=== PATIENT | female | born 1970 | race Hispanic/Latino ===

== ENCOUNTER 2024-07-10 12:49 | Emergency (ER) | payer BC ==
--- OUTSIDE RECORDS SUMMARY | 2024-07-10 12:54 | XMS REPORT | Continuity of Care Document ---
Author Name Unknown Address [address] [place] [id number] [facility] thconnect Address [address] [place] [address] Care Team Providers Care Avionics Installer Name Role Phone Carlos Rock Attending Clinician Unavailable [email or web address]_Kadiyala_S Attending Clinician Unavaila ble [email or web address]_Kadiyala_S Admitting Clinician Unavaila ble Payers Payer Name Policy Type Policy Number Effective Date Expirati on Date Source [facility] 6 [id number] 2023 00:00:00 2090 00:00:00 [facility] [place] [id number] 2010 00:00:00 Problems Condition Name Condition Details Condition Category Status Onset Date Resolution Date Last Treatment Date Treating Clinician Comments Source [id number] Primary osteoarthr itis of left knee Problem [facility] [id number] Lymphocyto sis Problem [facility] Osteoarthr itis Polyosteoa rthritis Problem [facility] Leukocytos is Elevated white blood cell count Problem [facility] [id number] Tear of left rotator cuff, unspecifie d tear extent, unspecifie d whether traumatic Problem [facility] [id number] Rheumatoid arthritis involving multiple sites, unspecifie d whether rheumatoid factor present Problem [facility] [id number] Postmenopa usal symptoms Problem [facility] [id number] GERD without esophagiti s Problem [facility] NAFLD - Nonalcohol ic fatty liver disease Non-alcoho lic fatty liver disease Problem [facility] Obesity Obesity (BMI 30-39.9) Problem [facility] FH: Diabetes mellitus Family history of diabetes mellitus Problem [facility] [id number] Muscle spasm Problem [facility] [id number] HTN (hypertens ion), benign Problem [facility] [id number] Adult BMI 30.0-30.9 kg/sq m Problem [facility] [id number] Panic disorder [episodic paroxysmal anxiety] Problem [facility] [id number] Fibromyalg ia Problem [facility] [id number] Generalize d anxiety disorder Problem [facility] Vitamin D deficiency Vitamin D deficiency Problem [facility] [id number] Hyperlipem ia, mixed Problem [facility] Essential hypertensi on Benign essential HTN Problem [facility] [id number] Herniated lumbar interverte bral disc Problem [facility] [id number] Neuropathy , cervical Problem [facility] [id number] Ulnar neuropathy of right upper extremity Problem [facility] Allergies, Adverse Reactions, Alerts Allergy Name Allergy Type Status Severity Reaction(s) Onset Date Inactive Date Treating Clinician Comments Source morphine morphine Active Unknown Commo n [facility] codeine codeine Active Unknown [facility] Social History Social Habit Start Date Stop Date Quantity Comments Source History of Tobacco Use [facility] Sex Assigned At [facility] Smoking Status Start Date Stop Date Source Never Smoker [facility] Medications Ordered Medication Name Filled Medication Name Start Date Stop Date Current Medication? Ordering Clinician Indication Dosage Frequency Signature (SIG) Comments Components Source Lyrica 50 MG Lyrica 50 MG 2023-05 00:00: 00 No 1{capsu le} BID Lyrica 50 MG Xanax 0.5 MG Xanax 0.5 MG 2023-05 00:00: 00 No 1{table t} Xanax 0.5 MG BUPivacaine HCl BUPivacaine HCl 2023-05 00:00: 00 No 4mL [facility] Bupivicaine [place] Bupivicaine [place] 2020-05 00:00: 00 No 2.5mg [facility] Kenalog (Triamcinol one) Kenalog (Triamcinol one) 10-20 00:00: 00 No 40mg [facility] LIDOCAINE HCL 10MG/ML LIDOCAINE HCL 10MG/ML 10-20 00:00: 00 No 10mg [facility] Losartan Potassium 50 MG Losartan Potassium 50 MG No 1{table t} QD Losartan Potassium 50 MG Leflunomide 20 MG Leflunomide 20 MG No 1{table t} QD Leflunomid e 20 MG Venlafaxine HCl ER 150 MG Venlafaxine HCl ER 150 MG No 1{capsu le_with _food} QD Venlafaxin e HCl ER 150 MG Immunizations Ordered Immunization Name Filled Immunization Name Date Status Comments Source Flucelvax - single dose syringe Flucelvax - single dose syringe 2022-03-11 16:14:00 Completed [facility] Flucelvax - single dose syringe Flucelvax - single dose syringe 2022-03-11 16:14:00 [facility] Moderna COVID-19 Vaccine (Low Dose Booster) Moderna COVID-19 Vaccine (Low Dose Booster) 2021-04-23 14:39:00 Completed [facility] Moderna COVID-19 Vaccine (Low Dose Booster) Moderna COVID-19 Vaccine (Low Dose Booster) 2021-04-23 14:39:00 Completed [facility] Moderna COVID-19 Vaccine (Low Dose Booster) Moderna COVID-19 Vaccine (Low Dose Booster) 2021-04-23 14:39:00 Completed [facility] Moderna COVID-19 Vaccine (Low Dose Booster) Moderna COVID-19 Vaccine (Low Dose Booster) 2021-04-23 14:39:00 Completed [facility] Moderna COVID-19 Vaccine (Low Dose Booster) Moderna COVID-19 Vaccine (Low Dose Booster) 2021-04-23 14:39:00 Completed [facility] Moderna COVID-19 Vaccine (Low Dose Booster) Moderna COVID-19 Vaccine (Low Dose Booster) 2021-04-23 14:39:00 Completed [facility] Bupivicaine [place] Bupivicaine [place] 2021-03-13 09:39:00 Completed [facility] Kenalog (Triamcinolone) Kenalog (Triamcinolone) 2021-03-13 09:38:00 Completed [facility] COVID-19 Vaccine (Nino) COVID-19 Vaccine (Nino) 2020-08-13 10:43:00 Completed [facility] COVID-19 Vaccine (Nino) COVID-19 Vaccine (Nino) 2020-08-13 10:43:00 Completed [facility] COVID-19 Vaccine (Nino) COVID-19 Vaccine (Nino) 2020-08-13 10:43:00 Completed [facility] COVID-19 Vaccine (Nino) COVID-19 Vaccine (Nino) 2020-08-13 10:43:00 Completed [facility] COVID-19 Vaccine (Nino) COVID-19 Vaccine (Nino) 2020-08-13 10:43:00 Completed [facility] COVID-19 Vaccine (Nino) COVID-19 Vaccine (Nino) 2020-08-13 10:43:00 Completed [facility] Afluria single dose Afluria single dose 15:06:00 Completed [facility] Afluria single dose Afluria single dose 15:06:00 Completed [facility] Afluria single dose Afluria single dose 15:06:00 Completed [facility] Afluria single dose Afluria single dose 15:06:00 Completed [facility] Afluria single dose Afluria single dose 15:06:00 Completed [facility] Afluria single dose Afluria single dose 15:06:00 Completed [facility] Afluria single dose Afluria single dose 00:00:00 Completed [facility] Kenalog (Triamcinolone) Kenalog (Triamcinolone) 2018-10-20 09:10:00 Completed [facility] LIDOCAINE HCL 10MG/ML LIDOCAINE HCL 10MG/ML 2018-10-20 09:09:00 Completed [facility] Adacel (Tdap) Adacel (Tdap) 2018-07-22 09:19:00 Completed [facility] Adacel (Tdap) Adacel (Tdap) 2018-07-22 09:19:00 Completed [facility] Adacel (Tdap) Adacel (Tdap) 2018-07-22 09:19:00 Completed [facility] Adacel (Tdap) Adacel (Tdap) 2018-07-22 09:19:00 Completed [facility] Adacel (Tdap) Adacel (Tdap) 2018-07-22 09:19:00 Completed [facility] Adacel (Tdap) Adacel (Tdap) 2018-07-22 09:19:00 Completed [facility] Afluria Afluria 2018-07-22 09:18:00 Completed [facility] Afluria Afluria 2018-07-22 09:18:00 Completed [facility] Afluria Afluria 2018-07-22 09:18:00 Completed [facility] Afluria Afluria 2018-07-22 09:18:00 Completed [facility] Afluria Afluria 2018-07-22 09:18:00 Completed [facility] Afluria Afluria 2018-07-22 09:18:00 Completed [facility] TDAP > 7 Years-Adacel TDAP > 7 Years-Adacel 2018-07-22 00:00:00 Completed [facility] Afluria Afluria 2018-07-22 00:00:00 Completed [facility] Moderna COVID-19 Vaccine (Low Dose Booster) Moderna COVID-19 Vaccine (Low Dose Booster) Unknown Completed [facility] COVID-19 Vaccine (Nino) COVID-19 Vaccine (Nino) Unknown Completed [facility] Afluria single dose Afluria single dose Unknown Completed [facility] Afluria Afluria Unknown Completed [facility] Flucelvax - single dose syringe Flucelvax - single dose syringe Unknown Completed [facility] Adacel (Tdap) Adacel (Tdap) Unknown [facility]ine (Low Dose Booster) Moderna COVID-19 Vaccine (Low Dose Booster) Unknown Completed [facility] COVID-19 Vaccine (Nino) COVID-19 Vaccine (Nino) Unknown Completed [facility] Afluria single dose Afluria single dose Unknown Completed [facility] Afluria Afluria Unknown Completed [facility] Flucelvax - single dose syringe Flucelvax - single dose syringe Unknown Completed [facility] Adacel (Tdap) Adacel (Tdap) Unknown Completed Co on [facility] Moderna COVID-19 Vaccine (Low Dose Booster) Moderna COVID-19 Vaccine (Low Dose Booster) Unknown Completed [facility] COVID-19 Vaccine (Nino) COVID-19 Vaccine (Nino) Unknown Completed [facility] Afluria single dose Afluria single dose Unknown Completed [facility] Afluria Afluria Unknown Completed [facility] Flucelvax - single dose syringe Flucelvax - single dose syringe Unknown Completed [facility] Adacel (Tdap) Adacel (Tdap) [facility] Dose Bo[facility] Moderna COVID-19 Vaccine (Low Dose Booster) Unknown Completed [facility] COVID-19 Vaccine (Nino) COVID-19 Vaccine (Nino) Unknown Completed [facility] Afluria single dose Afluria single dose Unknown Completed [facility] Afluria Afluria Unknown Completed [facility] Flucelvax - single dose syringe Flucelvax - single dose syringe Unknown Completed [facility] Adacel (Tdap) Adacel (Tdap) Unknown [facility] (Low Dose Booster) Moderna COVID-19 Vaccine (Low Dose Booster) Unknown Completed [facility] COVID-19 Vaccine (Nino) COVID-19 Vaccine (Nino) Unknown Completed [facility] Afluria (IIV4) - 3 years and older - SDS - 0.5mL Afluria (IIV4) - 3 years and older - SDS - 0.5mL Unknown Completed [facility] Afluria Afluria Unknown Completed [facility] Flucelvax (ccIIV4) - SDS - 0.5mL Flucelvax (ccIIV4) - SDS - 0.5mL Unknown Completed [facility] Adacel (Tdap) Adacel (Tdap) Unknown Completed [facility] Moderna COVID-19 Vaccine (Low Dose Booster) Moderna COVID-19 Vaccine (Low Dose Booster) Unknown Completed [facility] COVID-19 Vaccine (Nino) COVID-19 Vaccine (Nino) Unknown Completed [facility] Afluria (IIV4) - 3 years and older - SDS - 0.5mL Afluria (IIV4) - 3 years and older - SDS - 0.5mL Unknown Completed [facility] Afluria Afluria Unknown Completed [facility] Flucelvax (ccIIV4) - SDS - 0.5mL Flucelvax (ccIIV4) - SDS - 0.5mL Unknown Completed [facility] Adacel (Tdap) Adacel (Tdap) Unknown Completed [facility] Moderna COVID-19 Vaccine (Low Dose Booster) Moderna COVID-19 Vaccine (Low Dose Booster) Unknown Completed [facility] COVID-19 Vaccine (Nino) COVID-19 Vaccine (Nino) Unknown Completed [facility] Afluria (IIV4) - 3 years and older - SDS - 0.5mL Afluria (IIV4) - 3 years and older - SDS - 0.5mL Unknown Completed [facility] Afluria Afluria Unknown Completed [facility] Flucelvax (ccIIV4) - SDS - 0.5mL Flucelvax (ccIIV4) - SDS - 0.5mL Unknown Completed [facility] Adacel (Tdap) Adacel (Tdap) Unknown Completed [facility] Moderna COVID-19 Vaccine (Low Dose Booster) Moderna COVID-19 Vaccine (Low Dose Booster) Unknown Completed [facility] COVID-19 Vaccine (Nino) COVID-19 Vaccine (Nino) Unknown Completed [facility] Afluria (IIV4) - 3 years and older - SDS - 0.5mL Afluria (IIV4) - 3 years and older - SDS - 0.5mL Unknown Completed [facility] Afluria Afluria Unknown Completed [facility] Flucelvax (ccIIV4) - SDS - 0.5mL Flucelvax (ccIIV4) - SDS - 0.5mL Unknown Completed [facility] Adacel (Tdap) Adacel (Tdap) Unknown Completed [facility] Moderna COVID-19 Vaccine (Low Dose Booster) Moderna COVID-19 Vaccine (Low Dose Booster) Unknown Completed [facility] COVID-19 Vaccine (Nino) COVID-19 Vaccine (Nino) Unknown Completed [facility] Afluria (IIV4) - 3 years and older - SDS - 0.5mL Afluria (IIV4) - 3 years and older - SDS - 0.5mL Unknown Completed [facility] Afluria Afluria Unknown Completed [facility] rit [facility] Flucelvax (ccIIV4) - SDS - 0.5mL Flucelvax (ccIIV4) - SDS - 0.5mL Unknown Completed [facility] Adacel (Tdap) Adacel (Tdap) Unknown Completed [facility] Moderna COVID-19 Vaccine (Low Dose Booster) Moderna COVID-19 Vaccine (Low Dose Booster) Unknown Completed [facility] COVID-19 Vaccine (Nino) COVID-19 Vaccine (Nino) Unknown Completed [facility] Afluria (IIV4) - 3 years and older - SDS - 0.5mL Afluria (IIV4) - 3 years and older - SDS - 0.5mL Unknown Completed [facility] Afluria Afluria Unknown Completed [facility] Flucelvax (ccIIV4) - SDS - 0.5mL Flucelvax (ccIIV4) - SDS - 0.5mL Unknown Completed [facility] Adacel (Tdap) Adacel (Tdap) Unknown Completed [facility] Moderna COVID-19 Vaccine (Low Dose Booster) Moderna COVID-19 Vaccine (Low Dose Booster) Unknown Completed [facility] COVID-19 Vaccine (Nino) COVID-19 Vaccine (Nino) Unknown Completed [facility] Afluria (IIV4) - 3 years and older - SDS - 0.5mL Afluria (IIV4) - 3 years and older - SDS - 0.5mL Unknown Completed [facility] Afluria Afluria Unknown Completed [facility] Flucelvax (ccIIV4) - SDS - 0.5mL Flucelvax (ccIIV4) - SDS - 0.5mL Unknown Completed [facility] Adacel (Tdap) Adacel (Tdap) Unknown Completed [facility] Moderna COVID-19 Vaccine (Low Dose Booster) Moderna COVID-19 Vaccine (Low Dose Booster) Unknown Completed [facility] COVID-19 Vaccine (Nino) COVID-19 Vaccine (Nino) Unknown Completed [facility] Afluria (IIV4) - 3 years and older - SDS - 0.5mL Afluria (IIV4) - 3 years and older - SDS - 0.5mL Unknown Completed [facility] Afluria Afluria Unknown Completed [facility] Flucelvax (ccIIV4) - SDS - 0.5mL Flucelvax (ccIIV4) - SDS - 0.5mL Unknown Completed [facility] Adacel (Tdap) Adacel (Tdap) Unknown [facility] (LOW DOSE BOOSTER) MODERNA COVID-19 VACCINE (LOW DOSE BOOSTER) Unknown Completed [facility] COVID-19 Vaccine (Nino) COVID-19 Vaccine (Nino) Unknown Completed [facility] Afluria (IIV4) - 3 years and older - SDS - 0.5mL Afluria (IIV4) - 3 years and older - SDS - 0.5mL Unknown Completed [facility] Afluria Afluria Unknown Completed [facility] Flucelvax (ccIIV4) - SDS - 0.5mL Flucelvax (ccIIV4) - SDS - 0.5mL Unknown Completed [facility] Adacel (Tdap) Adacel (Tdap) Unknown Completed [facility] Vital Signs Vital Name Observation Time Observation Value Comments S ource height 2024-05-23 08:30:00 62.5 [in_i] Comm on [facility] weight 2024-05-23 08:30:00 158 [lb_av] Comm on [facility] temperature 2024-05-23 08:30:00 98.9 [degF] Com [facility] bmi 2024-05-23 08:30:00 28.43 kg/m2 Comm on [facility] blood pressure systolic 2024-05-23 08:30:00 134 mm[Hg] [facility] blood pressure diastolic 2024-05-23 08:30:00 80 mm[Hg] Common [facility] height 2024-05-08 15:30:00 62.5 [in_i] Comm on [facility] weight 2024-05-08 15:30:00 158.4 [lb_av] Co mmon [facility] temperature 2024-05-08 15:30:00 97.2 [degF] Com [facility] bmi 2024-05-08 15:30:00 28.51 kg/m2 Comm on [facility] oximetry 2024-05-08 15:30:00 97 % Commo n [facility] respiratory rate 2024-05-08 15:30:00 18 /min Common [facility] blood pressure systolic 2024-05-08 15:30:00 138 mm[Hg] [facility] blood pressure diastolic 2024-05-08 15:30:00 77 mm[Hg] Common [facility] height 2024-04-11 13:00:00 62.5 [in_i] Comm on [facility] weight 2024-04-11 13:00:00 159.0 [lb_av] Co mmon [facility] temperature 2024-04-11 13:00:00 98.1 [degF] Com [facility] bmi 2024-04-11 13:00:00 28.61 kg/m2 Comm on [facility] blood pressure systolic 2024-04-11 13:00:00 137 mm[Hg] Common [facility] blood pressure diastolic 2024-04-11 13:00:00 78 mm[Hg] Common [facility] temperature 2024-04-03 10:20:00 97.7 [degF] Com mon [facility] bmi 2024-04-03 10:20:00 28.25 kg/m2 Comm on [facility] oximetry 2024-04-03 10:20:00 97 % Commo n [facility] respiratory rate 2024-04-03 10:20:00 18 /min Common [facility] blood pressure systolic 2024-04-03 10:20:00 132 mm[Hg] Common [facility] blood pressure diastolic 2024-04-03 10:20:00 67 mm[Hg] [facility] height 2024-04-03 10:20:00 62.5 [in_i] Comm on [facility] weight 2024-04-03 10:20:00 157 [lb_av] Comm on [facility] height 2024-01-27 15:50:00 62.5 [in_i] Comm on [facility] weight 2024-01-27 15:50:00 159.2 [lb_av] Co mmon [facility] temperature 2024-01-27 15:50:00 97.6 [degF] Com mon [facility] bmi 2024-01-27 15:50:00 28.65 kg/m2 Comm on [facility] oximetry 2024-01-27 15:50:00 97 % Commo n [facility] respiratory rate 2024-01-27 15:50:00 18 /min Common [facility] blood pressure systolic 2024-01-27 15:50:00 126 mm[Hg] Common [facility] blood pressure diastolic 2024-01-27 15:50:00 72 mm[Hg] [facility] height 2024-01-27 15:50:00 62.5 [in_i] Comm on [facility] weight 2024-01-27 15:50:00 159.2 [lb_av] Co mmon [facility] temperature 2024-01-27 15:50:00 97.6 [degF] Com mon [facility] bmi 2024-01-27 15:50:00 28.65 kg/m2 Comm on [facility] oximetry 2024-01-27 15:50:00 97 % Commo n [facility] respiratory rate 2024-01-27 15:50:00 18 /min Common [facility] blood pressure systolic 2024-01-27 15:50:00 126 mm[Hg] Common [facility] blood pressure diastolic 2024-01-27 15:50:00 72 mm[Hg] Common [facility] height 2024-01-04 15:30:00 62.5 [in_i] Comm on [facility] weight 2024-01-04 15:30:00 159.6 [lb_av] Co mmon [facility] temperature 2024-01-04 15:30:00 97.2 [degF] Com mon [facility] bmi 2024-01-04 15:30:00 28.72 kg/m2 Comm on [facility] oximetry 2024-01-04 15:30:00 98 % Commo n [facility] respiratory rate 2024-01-04 15:30:00 16 /min Common [facility] blood pressure systolic 2024-01-04 15:30:00 132 mm[Hg] Common [facility] blood pressure diastolic 2024-01-04 15:30:00 74 mm[Hg] Common [facility] height 2023-08-31 16:20:00 62.5 [in_i] Comm on [facility] weight 2023-08-31 16:20:00 160 [lb_av] Comm on [facility] bmi 2023-08-31 16:20:00 28.79 kg/m2 Comm on [facility] blood pressure systolic 2023-08-31 16:20:00 129 mm[Hg] Common [facility] blood pressure diastolic 2023-08-31 16:20:00 64 mm[Hg] Common [facility] height 2023-04-07 14:20:00 62.5 [in_i] Comm on [facility] weight 2023-04-07 14:20:00 157 [lb_av] Comm on [facility] bmi 2023-04-07 14:20:00 28.25 kg/m2 Comm on [facility] blood pressure systolic 2023-04-07 14:20:00 134 mm[Hg] Common [facility] blood pressure diastolic 2023-04-07 14:20:00 72 mm[Hg] Common [facility] height 2023-03-31 15:40:00 62.5 [in_i] Comm on [facility] weight 2023-03-31 15:40:00 157 [lb_av] Comm on [facility] bmi 2023-03-31 15:40:00 28.25 kg/m2 Comm on [facility] height 2023-01-05 14:20:00 62.5 [in_i] Comm on [facility] weight 2023-01-05 14:20:00 160.0 [lb_av] Co mmon [facility] temperature 2023-01-05 14:20:00 97.9 [degF] Com mon [facility] bmi 2023-01-05 14:20:00 28.79 kg/m2 Comm on [facility] oximetry 2023-01-05 14:20:00 98 % Commo n [facility] respiratory rate 2023-01-05 14:20:00 18 /min Common [facility] blood pressure systolic 2023-01-05 14:20:00 137 mm[Hg] Common [facility] blood pressure diastolic 2023-01-05 14:20:00 77 mm[Hg] [facility] height 2022-07-13 16:10:00 62.5 [in_i] Comm on [facility] weight 2022-07-13 16:10:00 165 [lb_av] Comm on [facility] bmi 2022-07-13 16:10:00 29.69 kg/m2 Comm on [facility] blood pressure systolic 2022-07-13 16:10:00 132 mm[Hg] Common [facility] blood pressure diastolic 2022-07-13 16:10:00 70 mm[Hg] [facility] height 2022-03-11 16:00:00 62.5 [in_i] Comm on [facility] weight 2022-03-11 16:00:00 167 [lb_av] Comm on [facility] temperature 2022-03-11 16:00:00 97.3 [degF] Com mon [facility] bmi 2022-03-11 16:00:00 30.05 kg/m2 Comm on [facility] oximetry 2022-03-11 16:00:00 99 % Commo n [facility] respiratory rate 2022-03-11 16:00:00 18 /min [facility] blood pressure systolic 2022-03-11 16:00:00 138 mm[Hg] [facility] blood pressure diastolic 2022-03-11 16:00:00 67 mm[Hg] [facility] height 2021-12-01 10:20:00 62.5 [in_i] Comm on [facility] weight 2021-12-01 10:20:00 158.0 [lb_av] Co mmon [facility] temperature 2021-12-01 10:20:00 97.7 [degF] Com [facility] bmi 2021-12-01 10:20:00 28.43 kg/m2 Comm on [facility] oximetry 2021-12-01 10:20:00 97 % Commo n [facility] respiratory rate 2021-12-01 10:20:00 18 /min Common [facility] blood pressure systolic 2021-12-01 10:20:00 123 mm[Hg[facility] blood pressure diastolic 2021-12-01 10:20:00 62 mm[Hg] [facility] height 2021-11-03 08:45:00 61 [in_i] Commo n [facility] weight 2021-11-03 08:45:00 164.2 [lb_av] Co mmon [facility] temperature 2021-11-03 08:45:00 98.0 [degF] Com [facility] bmi 2021-11-03 08:45:00 31.02 kg/m2 Comm on [facility] blood pressure systolic 2021-11-03 08:45:00 122 mm[Hg] [facility] blood pressure diastolic 2021-11-03 08:45:00 76 mm[Hg] [facility] height 2021-08-14 09:50:00 61 [in_i] Commo n [facility] weight 2021-08-14 09:50:00 159.3 [lb_av] Co mmon [facility] temperature 2021-08-14 09:50:00 97.2 [degF] Com [facility] bmi 2021-08-14 09:50:00 30.1 kg/m2 Commo n [facility] oximetry 2021-08-14 09:50:00 100 % Commo n [facility] [facility] respiratory rate 2021-08-14 09:50:00 18 /min Common [facility] blood pressure systolic 2021-08-14 09:50:00 138 mm[Hg] Common Spiri t [facility] blood pressure diastolic 2021-08-14 09:50:00 72 mm[Hg] [facility] height 2021-07-01 15:00:00 61 [in_i] Commo n [facility] weight 2021-07-01 15:00:00 163.1 [lb_av] Co mmon [facility] temperature 2021-07-01 15:00:00 97.9 [degF] Com mon [facility] bmi 2021-07-01 15:00:00 30.81 kg/m2 Comm on [facility] oximetry 2021-07-01 15:00:00 100 % Commo n [facility] respiratory rate 2021-07-01 15:00:00 18 /min Common [facility] blood pressure systolic 2021-07-01 15:00:00 135 mm[Hg] [facility] blood pressure diastolic 2021-07-01 15:00:00 67 mm[Hg] Common [facility] height 2021-05-15 09:30:00 61 [in_i] Commo n [facility] weight 2021-05-15 09:30:00 163.1 [lb_av] Co mmon [facility] temperature 2021-05-15 09:30:00 97.9 [degF] Com mon [facility] bmi 2021-05-15 09:30:00 30.81 kg/m2 Comm on [facility] oximetry 2021-05-15 09:30:00 100 % Commo n [facility] respiratory rate 2021-05-15 09:30:00 18 /min [facility] blood pressure systolic 2021-05-15 09:30:00 135 mm[Hg] [facility] blood pressure diastolic 2021-05-15 09:30:00 67 mm[Hg] [facility] height 2021-03-13 09:00:00 61 [in_i] Commo n [facility] weight 2021-03-13 09:00:00 159.7 [lb_av] Co mmon [facility] temperature 2021-03-13 09:00:00 97.1 [degF] Com mon [facility] bmi 2021-03-13 09:00:00 30.17 kg/m2 Comm on [facility] blood pressure systolic 2021-03-13 09:00:00 132 mm[Hg] [facility] blood pressure diastolic 2021-03-13 09:00:00 80 mm[Hg] Common [facility] height 2021-02-20 09:00:00 61 [in_i] Commo n [facility] weight 2021-02-20 09:00:00 160 [lb_av] Comm on [facility] temperature 2021-02-20 09:00:00 98 [degF] Comm on [facility] bmi 2021-02-20 09:00:00 30.23 kg/m2 Comm on [facility] blood pressure systolic 2021-02-20 09:00:00 135 mm[Hg] Common [facility] blood pressure diastolic 2021-02-20 09:00:00 70 mm[Hg] [facility] height 2021-01-22 15:30:00 61 [in_i] Commo n [facility] weight 2021-01-22 15:30:00 160.3 [lb_av] Co mmon [facility] temperature 2021-01-22 15:30:00 97.9 [degF] Com [facility] bmi 2021-01-22 15:30:00 30.29 kg/m2 Comm on [facility] oximetry 2021-01-22 15:30:00 97 % Commo n [facility] respiratory rate 2021-01-22 15:30:00 16 /min [facility] blood pressure systolic 2021-01-22 15:30:00 132 mm[Hg] [facility] blood pressure diastolic 2021-01-22 15:30:00 76 mm[Hg] [facility] Encounters Start Date/Time End Date/Time Encounter Type Admission Type Attending Clinicians Care Facility Care Department Encounter ID Source 2024-07-10 10:35:00 Outpatient Rock, Carlos STLMLC STL[facility] [id number] [facility] 2024-05-19 08:56:00 Outpatient Rock, Carlos STLMLC ST[facility] [id number] [facility] 2024-04-10 10:08:00 Outpatient Rock, Carlos STLMLC ST[facility] [id number] [facility] 2024-03-31 09:31:00 Outpatient Rock, Carlos STLMLC ST[facility]C [id number] [facility] 2024-03-28 10:15:00 Outpatient Rock, Carlos STLMLC STLMLC [id number] [facility] 2024-01-21 15:07:00 Outpatient Rock, Carlos STLMLC ST[facility]C [id number] [facility] 2023-04-06 10:28:00 Outpatient Rock, Carlos STLMLC ST[facility]C [id number] [facility] 2023-03-31 14:53:00 Outpatient Rock, Carlos STLMLC ST[facility] [id number] [facility] 2023-01-04 09:01:00 Outpatient Rock, Carlos STLMLC ST[facility]MLC [id number] [facility] 2022-03-09 15:59:00 Outpatient Rock, Carlos STLMLC STLMLC [id number] [facility] 2022-03-03 08:50:01 Outpatient Rock, Carlos STLMLC STLMLC [id number] [facility] 2021-11-04 14:03:00 Outpatient Rock, Carlos STLMLC STLMLC [id number] [facility] 2021-09-15 10:01:00 Outpatient Rock, Carlos STLMLC ST[facility]C [id number] [facility] 2021-06-18 14:27:52 Outpatient Rock, Carlos STLMLC STLMLC [id number] [facility] 2021-06-18 14:19:26 Outpatient Rock, Carlos STLMLC STLMLC [id number] [facility] 2021-06-18 14:03:20 Outpatient Rock, Carlos STLMLC STLMLC [id number] [facility] 2021-06-18 14:02:48 Outpatient Rock, Carlos STLMLC STLMLC [id number] [facility] 2021-06-18 13:54:39 Outpatient Rock, Carlos STLMLC ST[facility]C [id number] [facility] 2021-06-18 13:49:22 Outpatient Rock, Carlos STLMLC STLMLC [id number] [facility] 2021-06-18 13:45:07 Outpatient Rock, Carlos STLMLC STLMLC [id number] [facility] 2021-06-18 13:09:30 Outpatient Rock, Carlos STLMLC STLMLC [id number] [facility] 2021-06-18 12:43:39 Outpatient Rock, Carlos STLMLC STLMLC [id number] [facility] 2021-06-18 12:43:09 Outpatient Rock, Carlos STLMLC STL[facility]C [id number] [facility] 2021-06-18 12:42:16 Outpatient Rock, Carlos STLMLC STLMLC [id number] [facility] 2021-06-18 12:40:23 Outpatient Rock, Carlos STLMLC STLMLC [id number] [facility] 2021-06-18 12:37:41 Outpatient Rock, Carlos STLMLC STLMLC [id number] [facility] 2021-06-18 12:37:04 Outpatient Rock, Carlos STLMLC STLMLC [id number] [facility] 2021-06-18 12:30:58 Outpatient Rock, Carlos STLMLC STLMLC [id number] [facility] 2021-06-18 12:25:14 Outpatient Rock, Carlos STLMLC STLMLC [id number] [facility] 2021-06-18 11:30:43 Outpatient Rock, Carlos STLMLC STLMLC [id number] [facility] 2021-06-18 11:29:49 Outpatient Rock, Carlos STLMLC STLMLC [id number] [facility] 2021-06-18 11:29:40 Outpatient Rock, Carlos STLMLC STLMLC [id number] [facility] 2021-06-18 11:27:58 Outpatient Rock, Carlos STLMLC STLMLC [id number] [facility] 2021-06-18 11:15:04 Outpatient Rock, Carlos STLMLC STLMLC [id number] [facility] 2021-06-18 11:14:41 Outpatient Rock, Carlos STLMLC STLMLC [id number] [facility] 2024-05-23 00:00:00 2024-05-23 00:00:00 OFFICE VISIT ESTAB PT LEVEL 4 STLMLC STLMLC [id number] [facility] 2024-05-23 00:00:00 2024-05-23 00:00:00 (TEL) STLMLC STLMLC [id number] [facility] 2024-05-08 00:00:00 2024-05-08 00:00:00 OFFICE VISIT ESTAB PT LEVEL 4 STLMLC STLMLC [id number] [facility] 2024-04-28 00:00:00 2024-04-28 00:00:00 (WEB) STLMLC STLMLC [id number] [facility] 2024-04-27 00:00:00 2024-04-27 00:00:00 (WEB) STLMLC STLMLC [id number] [facility] 2024-04-11 00:00:00 2024-04-11 00:00:00 OFFICE VISIT ESTAB PT LEVEL 4 STLMLC STLMLC [id number] [facility] 2024-04-04 00:00:00 2024-04-04 00:00:00 (WEB) STLMLC STLMLC [id number] [facility] 2024-04-04 00:00:00 2024-04-04 00:00:00 (WEB) STLMLC STLMLC [id number] [facility] 2024-04-03 00:00:00 2024-04-03 00:00:00 OFFICE VISIT ESTAB PT LEVEL 3 STLMLC STLMLC [id number] [facility] 2024-03-29 00:00:00 2024-03-29 00:00:00 (TEL) STLMLC STLMLC [id number] [facility] 2024-01-27 00:00:00 2024-01-27 00:00:00 OFFICE VISIT ESTAB PT LEVEL 3 STLMLC STLMLC [id number] [facility] 2024-01-04 00:00:00 2024-01-04 00:00:00 (WELLNESS) Wellness Visit STLMLC STLMLC [id number] [facility] 2023-08-31 00:00:00 2023-08-31 00:00:00 OFFICE VISIT ESTAB PT LEVEL 4 STLMLC STLMLC [id number] [facility] 2023-05-21 00:00:00 2023-05-21 00:00:00 Outpatient GC_GCBZW_Ka diyala_S PRIV PRIV [id number] [facility] 2023-05-08 00:00:00 2023-05-08 00:00:00 (WEB) STLMLC STLMLC [id number] [facility] 2023-05-03 00:00:00 2023-05-03 00:00:00 (WEB) STLMLC STLMLC [id number] [facility] 2023-04-23 00:00:00 2023-04-23 00:00:00 Outpatient GC_GCBZW_Ka diyala_S PRIV PRIV [id number] [facility] 2023-04-15 00:00:00 2023-04-15 00:00:00 (WEB) STLMLC STLMLC [id number] [facility] 2023-04-07 00:00:00 2023-04-07 00:00:00 OFFICE VISIT ESTAB PT LEVEL 4 STLMLC STLMLC [id number] [facility] 2023-03-31 00:00:00 2023-03-31 00:00:00 OFFICE VISIT ESTAB PT LEVEL 3 STLMLC STLMLC [id number] [facility] 2023-03-31 00:00:00 2023-03-31 00:00:00 (TEL) STLMLC STLMLC [id number] [facility] 2023-03-26 00:00:00 2023-03-26 00:00:00 Outpatient GC_GCBZW_Ka diyala_S PRIV PRIV [id number] [facility] 2023-03-05 00:00:00 2023-03-05 00:00:00 Outpatient GC_GCBZW_Ka diyala_S PRIV PRIV [id number] [facility] 2023-02-24 00:00:00 2023-02-24 00:00:00 Outpatient GC_GCBZW_Ka diyala_S PRIV PRIV [id number] [facility] 2023-02-24 00:00:00 2023-02-24 00:00:00 Outpatient GC_GCBZW_Ka diyala_S PRIV PRIV [id number] [facility] 2023-01-29 00:00:00 2023-01-29 00:00:00 (TEL) STLMLC STLMLC [id number] [facility] 2023-01-13 00:00:00 2023-01-13 00:00:00 Outpatient GC_GCBZW_Ka diyala_S PRIV PRIV [id number] [facility] 2023-01-05 00:00:00 2023-01-05 00:00:00 (WELLNESS) Wellness Visit STLMLC STLMLC [id number] [facility] 2022-08-29 00:00:00 2022-08-29 00:00:00 (WEB) STLMLC STLMLC [id number] [facility] 2022-08-29 00:00:00 2022-08-29 00:00:00 (WEB) STLMLC STLMLC [id number] [facility] 2022-07-15 00:00:00 2022-07-15 00:00:00 (WEB) STLMLC STLMLC [id number] [facility] 2022-07-13 00:00:00 2022-07-13 00:00:00 OFFICE VISIT ESTAB PT LEVEL 3 STLMLC STLMLC [id number] [facility] 2022-06-17 00:00:00 2022-06-17 00:00:00 (TEL) STLMLC STLMLC [id number] [facility] 2022-03-11 00:00:00 2022-03-11 00:00:00 PREV VISIT EST AGE 40-64 STLMLC STLMLC [id number] [facility] 2021-12-03 00:00:00 2021-12-03 00:00:00 (TEL) STLMLC STLMLC [id number] [facility] 2021-12-01 00:00:00 2021-12-01 00:00:00 OFFICE VISIT ESTAB PT LEVEL 4 STLMLC STLMLC [id number] [facility] 2021-11-04 00:00:00 2021-11-04 00:00:00 (TEL) STLMLC STLMLC [id number] [facility] 2021-11-03 00:00:00 2021-11-03 00:00:00 (TEL) STLMLC STLMLC [id number] [facility] 2021-11-03 00:00:00 2021-11-03 00:00:00 OFFICE VISIT ESTAB PT LEVEL 4 STLMLC STLMLC [id number] [facility] 2021-09-18 00:00:00 2021-09-18 00:00:00 (WEB) STLMLC STLMLC [id number] [facility] 2021-08-14 00:00:00 2021-08-14 00:00:00 OFFICE VISIT ESTAB PT LEVEL 4 STLMLC STLMLC [id number] [facility] 2021-07-15 00:00:00 2021-07-15 00:00:00 OFFICE VISIT ESTAB PT LEVEL 1 STLMLC STLMLC [id number] [facility] 2021-07-14 00:00:00 2021-07-14 00:00:00 (TEL) STLMLC STLMLC [id number] [facility] 2021-07-14 00:00:00 2021-07-14 00:00:00 (TEL) STLMLC STLMLC [id number] [facility] 2021-07-01 00:00:00 2021-07-01 00:00:00 (WEB) STLMLC STLMLC [id number] [facility] 2021-07-01 00:00:00 2021-07-01 00:00:00 (TEL) STLMLC STLMLC [id number] [facility] 2021-07-01 00:00:00 2021-07-01 00:00:00 OFFICE VISIT EST PT LEVEL 3 STLMLC STLMLC [id number] [facility] 2021-05-26 00:00:00 2021-05-26 00:00:00 OFFICE VISIT ESTAB PT LEVEL 1 STLMLC STLMLC [id number] [facility] 2021-05-26 00:00:00 2021-05-26 00:00:00 (TEL) STLMLC STLMLC [id number] [facility] 2021-05-15 00:00:00 2021-05-15 00:00:00 OFFICE VISIT ESTAB PT LEVEL 4 STLMLC STLMLC [id number] [facility] 2021-04-23 00:00:00 2021-04-23 00:00:00 (COVID Inj) COVID Injection STLMLC STLMLC [id number] [facility] 2021-03-13 00:00:00 2021-03-13 00:00:00 OFFICE VISIT ESTAB PT LEVEL 4 STLMLC STLMLC [id number] [facility] 2021-02-20 00:00:00 2021-02-20 00:00:00 OFFICE VISIT EST PT LEVEL 3 STLMLC STLMLC [id number] [facility] 2021-01-22 00:00:00 2021-01-22 00:00:00 PREV VISIT EST AGE 40-64 STLMLC STLMLC [id number] [facility] 2021-01-14 00:00:00 2021-01-14 00:00:00 (TEL) STLMLC STLMLC [id number] [facility] 2020-08-13 00:00:00 2020-08-13 00:00:00 Outpatient STLMLC STLMLC [id number] [facility] 2020-08-06 00:00:00 2020-08-06 00:00:00 Outpatient STLMLC STLMLC [id number] [facility] 2020-07-08 00:00:00 2020-07-08 00:00:00 Outpatient STLMLC STLMLC [id number] [facility] 2020-07-02 00:00:00 2020-07-02 00:00:00 Outpatient STLMLC STLMLC [id number] [facility] 2020-06-18 00:00:00 2020-06-18 00:00:00 Outpatient STLMLC STLMLC [id number] [facility] 2020-04-11 00:00:00 2020-04-11 00:00:00 Outpatient STLMLC STLMLC [id number] [facility] 2020-04-10 00:00:00 2020-04-10 00:00:00 Outpatient STLMLC STLMLC [id number] [facility] 2019-12-29 10:41:00 2019-12-29 10:41:00 [facility] [id number] [facility] 2019-12-27 09:18:00 2019-12-27 09:18:00 [facility] [id number] [facility] 2019-12-06 22:49:00 2019-12-06 22:49:00 [facility] [id number] [facility] 2019-12-05 15:00:00 2019-12-05 15:00:00 [facility] [id number] [facility] 2019-12-04 08:45:00 2019-12-04 08:45:[address] [facility] [id number] [facility] 2019-11-09 15:45:00 2019-11-09 15:45:[address] [facility] [id number] [facility] 2019-08-25 10:15:00 2019-08-25 10:15:[address] [facility] [id number] [facility] 2019-04-17 14:45:00 2019-04-17 14:45:[address] [facility] [id number] [facility] 2019-03-23 16:31:00 2019-03-23 16:31:[address] [facility] [id number] [facility] 2019-01-18 09:15:00 2019-01-18 09:15:00 [facility] [id number] [facility] 2018-09-28 11:00:00 2018-09-28 11:00:[address] [facility] [id number] [facility] 2018-09-19 09:38:00 2018-09-19 09:38:[address] [facility] [id number] [facility] 2018-08-08 10:31:00 2018-08-08 10:31:[address] [facility] [facility] [id number] [facility] 2018-07-22 09:15:00 2018-07-22 09:15:[address] [facility] [id number] [facility] 2018-06-07 16:00:00 2018-06-07 16:00:[address] [facility] [id number] [facility] 2018-05-13 09:51:00 2018-05-13 09:51:[address] [facility] [id number] [facility] 2018-05-05 08:00:00 2018-05-05 08:00:00 [facility] [id number] [facility] 2017-12-08 09:30:00 2017-12-08 09:30:00 [facility] [id number] [facility] 2017-11-23 10:40:00 2017-11-23 10:40:[address] [facility] [facility] [id number] [facility] 2017-09-24 08:45:00 2017-09-24 08:45:00 [facility] [id number] [facility] 2017-08-17 10:49:00 2017-08-17 10:49:[address] [facility] [id number] [facility] 2017-08-17 10:45:00 2017-08-17 10:45:00 [facility] [place] [facility] [id number] [facility] Results Test Description Test Time Test Comments Results Result Co mments Source COMPREHENSIVE METABOLIC [id number] 00:00:00* Test Item Value Reference Range Interpretation Comme nts NUCLEATED RBCS (test code = 52556-9) 0.0 /100 WBC'S See_Comment [Automated message] The system which generated this result transmitted reference range: 0.0 /100 WBC'S. The reference range was not used to interpret this result as normal/abnormal. ABSOLUTE EOSINOPHILS (test code = 35149-4) 0.19 K/UL See_Comment [Automated message] The system which generated this result transmitted reference range: 0.00-0.50 K/UL. The reference range was not used to interpret this result as normal/abnormal. ABSOLUTE LYMPHOCYTES (test code = 71324-2) 2.59 K/UL See_Comment [Automated message] The system which generated this result transmitted reference range: 1.00-4.00 K/UL. The reference range was not used to interpret this result as normal/abnormal. ABSOLUTE MONOCYTES (test code = 28168-1) 0.42 K/UL See_Comment [Automated message] The system which generated this result transmitted reference range: 0.20-1.00 K/UL. The reference range was not used to interpret this result as normal/abnormal. ABSOLUTE NEUTROPHILS (test code = 33342-6) 2.97 K/UL See_Comment [Automated message] The system which generated this result transmitted reference range: 1.50-7.50 K/UL. The reference range was not used to interpret this result as normal/abnormal. BASOPHILS (test code = 30713-4) 1.4 % EOSINOPHILS (test code = 91165-6) 3.0 % HEMATOCRIT (test code = 20103-7) 36.5 % See_Comment [Automated messa ge] The system which generated this result transmitted reference range: 34.0-45.0 %. The reference range was not used to interpret this result as normal/abnormal. HEMOGLOBIN (test code = 718-7) 12.2 G/DL See_Comment [Automated messa ge] The system which generated this result transmitted reference range: 11.5-15.5 G/DL. The reference range was not used to interpret this result as normal/abnormal. LYMPHOCYTES (test code = 64948-1) 41.3 % MCH (test code = 98996-3) 29.0 PG See_Comment [Automated messa ge] The system which generated this result transmitted reference range: 25.0-33.0 PG. The reference range was not used to interpret this result as normal/abnormal. MCHC (test code = 47399-7) 33.4 G/DL See_Comment [Automated messa ge] The system which generated this result transmitted reference range: 31.0-36.0 G/DL. The reference range was not used to interpret this result as normal/abnormal. MCV (test code = 04676-9) 86.9 fL See_Comment [Automated messa ge] The system which generated this result transmitted reference range: 80.0-99.0 fL. The reference range was not used to interpret this result as normal/abnormal. MONOCYTES (test code = 71147-0) 6.7 % NEUTROPHILS (test code = 33337-2) 47.4 % PLATELET COUNT (test code = 52177-0) 254 K/UL See_Comment [Automated messa ge] The system which generated this result transmitted reference range: 130-400 K/UL. The reference range was not used to interpret this result as normal/abnormal. RBC (test code = 90029-9) 4.20 M/UL See_Comment [Automated messa ge] The system which generated this result transmitted reference range: 3.80-5.40 M/UL. The reference range was not used to interpret this result as normal/abnormal. RDW (test code = 27584-8) 13.1 % See_Comment [Automated [employer]] The system which generated this result transmitted reference range: 11.5-15.0 %. The reference range was not used to interpret this result as normal/abnormal. WBC (test code = 97680-1) 6.3 K/UL See_Comment [Automated [employer]] The system which generated this result transmitted reference range: 3.5-11.0 K/UL. The reference range was not used to interpret this result as normal/abnormal. HEMOGLOBIN A1c (test code = 4548-4) 5.5 % See_Comment [Automated [employer]] The system which generated this result transmitted reference range: 4.2-5.6 %. The reference range was not used to interpret this result as normal/abnormal. VITAMIN D, 25 OH (test code = 1989-3) 35 NG/ML SEE BELOW NG/ML CALC LDL CHOL (test code = 61821-7) 159 MG/DL See_Comment H [Automated messa ge] The system which generated this result transmitted reference range: <100 MG/DL. The reference range was not used to interpret this result as normal/abnormal. CHOLESTEROL (test code = 2093-3) 234 MG/DL See_Comment H [Automated messa ge] The system which generated this result transmitted reference range: <200 MG/DL. The reference range was not used to interpret this result as normal/abnormal. HDL CHOLESTEROL (test code = 2085-9) 50 MG/DL See_Comment [Automated [employer]] The system which generated this result transmitted reference range: >39 MG/DL. The reference range was not used to interpret this result as normal/abnormal. RISK RATIO LDL/HDL (test code = 24542-2) 3.18 RATIO See_Comment [Automated message] The system which generated this result transmitted reference range: <3.22 RATIO. The reference range was not used to interpret this result as normal/abnormal. TRIGLYCERIDES (test code = 2571-8) 128 MG/DL See_Comment [Automated messa ge] The system which generated this result transmitted reference range: <150 MG/DL. The reference range was not used to interpret this result as normal/abnormal. ALBUMIN (test code = 1751-7) 4.3 G/DL See_Comment [Automated messa ge] The system which generated this result transmitted reference range: 3.5-5.2 G/DL. The reference range was not used to interpret this result as normal/abnormal. ALKALINE PHOSPHATASE (test code = 6768-6) 97 U/L See_Comment [Automated message] The system which generated this result transmitted reference range: 40-133 U/L. The reference range was not used to interpret this result as normal/abnormal. BILIRUBIN, TOTAL (test code = 1975-2) 0.4 MG/DL See_Comment [Automated messa ge] The system which generated this result transmitted reference range: <=1.2 MG/DL. The reference range was not used to interpret this result as normal/abnormal. BUN (test code = 3094-0) 12 MG/DL See_Comment [Automated messa ge] The system which generated this result transmitted reference range: 6-20 MG/DL. The reference range was not used to interpret this result as normal/abnormal. CALCIUM (test code = 95270-3) 9.7 MG/DL See_Comment [Automated messa ge] The system which generated this result transmitted reference range: 8.5-10.5 MG/DL. The reference range was not used to interpret this result as normal/abnormal. CALC A/G RATIO (test code = 1759-0) 1.8 RATIO See_Comment [Automated messa ge] The system which generated this result transmitted reference range: 1.0-2.6 RATIO. The reference range was not used to interpret this result as normal/abnormal. CALC BUN/CREAT (test code = 3097-3) 17 RATIO See_Comment [Automated messa ge] The system which generated this result transmitted reference range: 6-28 RATIO. The reference range was not used to interpret this result as normal/abnormal. CALC GLOBULIN (test code = 22459-8) 2.4 G/DL See_Comment [Automated messa ge] The system which generated this result transmitted reference range: 1.9-3.7 G/DL. The reference range was not used to interpret this result as normal/abnormal. CARBON DIOXIDE (test code = 1963-8) 25 MEQ/L See_Comment [Automated messa ge] The system which generated this result transmitted reference range: 19-31 MEQ/L. The reference range was not used to interpret this result as normal/abnormal. CHLORIDE (test code = 2075-0) 105 MEQ/L See_Comment [Automated messa ge] The system which generated this result transmitted reference range: 95-107 MEQ/L. The reference range was not used to interpret this result as normal/abnormal. CREATININE (test code = 2160-0) 0.70 MG/DL See_Comment [Automated messa ge] The system which generated this result transmitted reference range: 0.60-1.30 MG/DL. The reference range was not used to interpret this result as normal/abnormal. eGFR (2020 CKD-EPI) (test code = 38373-4) 103 ML/MIN/1.73 See_Comment [Automated message] The system which generated this result transmitted reference range: >60 ML/MIN/1.73. The reference range was not used to interpret this result as normal/abnormal. GLUCOSE (test code = 1558-6) 93 MG/DL See_Comment [Automated messa ge] The system which generated this result transmitted reference range: 70-99 MG/DL. The reference range was not used to interpret this result as normal/abnormal. POTASSIUM (test code = 2823-3) 4.3 MEQ/L See_Comment [Automated messa ge] The system which generated this result transmitted reference range: 3.5-5.4 MEQ/L. The reference range was not used to interpret this result as normal/abnormal. PROTEIN, TOTAL (test code = 2885-2) 6.7 G/DL See_Comment [Automated messa ge] The system which generated this result transmitted reference range: 6.1-8.3 G/DL. The reference range was not used to interpret this result as normal/abnormal. AST (test code = 1920-8) 15 U/L See_Comment [Automated messa ge] The system which generated this result transmitted reference range: 9-40 U/L. The reference range was not used to interpret this result as normal/abnormal. ALT (test code = 1742-6) 13 U/L See_Comment [Automated messa ge] The system which generated this result transmitted reference range: 5-40 U/L. The reference range was not used to interpret this result as normal/abnormal. SODIUM (test code = 2951-2) 143 MEQ/L See_Comment [Automated messa ge] The system which generated this result transmitted reference range: 133-146 MEQ/L. The reference range was not used to interpret this result as normal/abnormal. CBC W/AUTO [id number] 00:00:00* Test Item Value Reference Range Interpretation Comme nts NUCLEATED RBCS (test code = 79064-8) 0.0 /100 WBC'S See_Comment [Automated messa ge] The system which generated this result transmitted reference range: 0.0 /100 WBC'S. The reference range was not used to interpret this result as normal/abnormal. ABSOLUTE EOSINOPHILS (test code = 55971-6) 0.22 K/UL See_Comment [Automated messa ge] The system which generated this result transmitted reference range: 0.00-0.50 K/UL. The reference range was not used to interpret this result as normal/abnormal. ABSOLUTE LYMPHOCYTES (test code = 87763-1) 2.62 K/UL See_Comment [Automated messa ge] The system which generated this result transmitted reference range: 1.00-4.00 K/UL. The reference range was not used to interpret this result as normal/abnormal. ABSOLUTE MONOCYTES (test code = 08368-2) 0.54 K/UL See_Comment [Automated messa ge] The system which generated this result transmitted reference range: 0.20-1.00 K/UL. The reference range was not used to interpret this result as normal/abnormal. ABSOLUTE NEUTROPHILS (test code = 59348-4) 3.68 K/UL See_Comment [Automated messa ge] The system which generated this result transmitted reference range: 1.50-7.50 K/UL. The reference range was not used to interpret this result as normal/abnormal. BASOPHILS (test code = 40981-5) 1.3 % EOSINOPHILS (test code = 08307-9) 3.1 % HEMATOCRIT (test code = 74126-6) 38.3 % See_Comment [Automated messa ge] The system which generated this result transmitted reference range: 34.0-45.0 %. The reference range was not used to interpret this result as normal/abnormal. HEMOGLOBIN (test code = 718-7) 12.6 G/DL See_Comment [Automated messa ge] The system which generated this result transmitted reference range: 11.5-15.5 G/DL. The reference range was not used to interpret this result as normal/abnormal. LYMPHOCYTES (test code = 43134-5) 36.6 % MCH (test code = 44205-8) 28.4 PG See_Comment [Automated messa ge] The system which generated this result transmitted reference range: 25.0-33.0 PG. The reference range was not used to interpret this result as normal/abnormal. MCHC (test code = 16267-0) 32.9 G/DL See_Comment [Automated messa ge] The system which generated this result transmitted reference range: 31.0-36.0 G/DL. The reference range was not used to interpret this result as normal/abnormal. MCV (test code = 41369-0) 86.5 fL See_Comment [Automated messa ge] The system which generated this result transmitted reference range: 80.0-99.0 fL. The reference range was not used to interpret this result as normal/abnormal. MONOCYTES (test code = 15372-3) 7.5 % NEUTROPHILS (test code = 22673-5) 51.4 % PLATELET COUNT (test code = 12018-8) 289 K/UL See_Comment [Automated messa ge] The system which generated this result transmitted reference range: 130-400 K/UL. The reference range was not used to interpret this result as normal/abnormal. RBC (test code = 16041-4) 4.43 M/UL See_Comment [Automated messa ge] The system which generated this result transmitted reference range: 3.80-5.40 M/UL. The reference range was not used to interpret this result as normal/abnormal. RDW (test code = 62543-0) 13.1 % See_Comment [Automated messa ge] The system which generated this result transmitted reference range: 11.5-15.0 %. The reference range was not used to interpret this result as normal/abnormal. WBC (test code = 01184-8) 7.2 K/UL See_Comment [Automated messa ge] The system which generated this result transmitted reference range: 3.5-11.0 K/UL. The reference range was not used to interpret this result as normal/abnormal. CBC W/AUTO [id number] 00:00:00* Test Item Value Reference Range Interpretation Comme nts NUCLEATED RBCS (test code = 47560-2) 0.0 /100 WBC'S See_Comment [Automated messa ge] The system which generated this result transmitted reference range: 0.0 /100 WBC'S. The reference range was not used to interpret this result as normal/abnormal. ABSOLUTE EOSINOPHILS (test code = 71257-1) 0.10 K/UL See_Comment [Automated messa ge] The system which generated this result transmitted reference range: 0.00-0.50 K/UL. The reference range was not used to interpret this result as normal/abnormal. ABSOLUTE LYMPHOCYTES (test code = 92191-3) 2.32 K/UL See_Comment [Automated messa ge] The system which generated this result transmitted reference range: 1.00-4.00 K/UL. The reference range was not used to interpret this result as normal/abnormal. ABSOLUTE MONOCYTES (test code = 29241-7) 1.06 K/UL See_Comment H [Automated messa ge] The system which generated this result transmitted reference range: 0.20-1.00 K/UL. The reference range was not used to interpret this result as normal/abnormal. ABSOLUTE NEUTROPHILS (test code = 08732-0) 6.39 K/UL See_Comment [Automated messa ge] The system which generated this result transmitted reference range: 1.50-7.50 K/UL. The reference range was not used to interpret this result as normal/abnormal. BASOPHILS (test code = 07687-9) 1.2 % EOSINOPHILS (test code = 70137-0) 1.0 % HEMATOCRIT (test code = 72682-6) 37.1 % See_Comment [Automated messa ge] The system which generated this result transmitted reference range: 34.0-45.0 %. The reference range was not used to interpret this result as normal/abnormal. HEMOGLOBIN (test code = 718-7) 12.5 G/DL See_Comment [Automated messa ge] The system which generated this result transmitted reference range: 11.5-15.5 G/DL. The reference range was not used to interpret this result as normal/abnormal. LYMPHOCYTES (test code = 69446-8) 23.1 % MCH (test code = 34680-2) 30.0 PG See_Comment [Automated messa ge] The system which generated this result transmitted reference range: 25.0-33.0 PG. The reference range was not used to interpret this result as normal/abnormal. MCHC (test code = 73665-2) 33.7 G/DL See_Comment [Automated messa ge] The system which generated this result transmitted reference range: 31.0-36.0 G/DL. The reference range was not used to interpret this result as normal/abnormal. MCV (test code = 93692-2) 89.2 fL See_Comment [Automated messa ge] The system which generated this result transmitted reference range: 80.0-99.0 fL. The reference range was not used to interpret this result as normal/abnormal. MONOCYTES (test code = 18321-2) 10.5 % NEUTROPHILS (test code = 72415-1) 63.6 % PLATELET COUNT (test code = 74878-6) 255 K/UL See_Comment [Automated messa ge] The system which generated this result transmitted reference range: 130-400 K/UL. The reference range was not used to interpret this result as normal/abnormal. RBC (test code = 20305-7) 4.16 M/UL See_Comment [Automated messa ge] The system which generated this result transmitted reference range: 3.80-5.40 M/UL. The reference range was not used to interpret this result as normal/abnormal. RDW (test code = 10081-1) 13.2 % See_Comment [Automated messa ge] The system which generated this result transmitted reference range: 11.5-15.0 %. The reference range was not used to interpret this result as normal/abnormal. WBC (test code = 42166-5) 10.1 K/UL See_Comment [Automated messa ge] The system which generated this result transmitted reference range: 3.5-11.0 K/UL. The reference range was not used to interpret this result as normal/abnormal. CBC W/AUTO [id number] 00:00:00* Test Item Value Reference Range Interpretation Comme nts NUCLEATED RBCS (test code = 37678-6) 0.0 /100 WBC'S See_Comment [Automated messa ge] The system which generated this result transmitted reference range: 0.0 /100 WBC'S. The reference range was not used to interpret this result as normal/abnormal. ABSOLUTE EOSINOPHILS (test code = 60126-4) 0.16 K/UL See_Comment [Automated messa ge] The system which generated this result transmitted reference range: 0.00-0.50 K/UL. The reference range was not used to interpret this result as normal/abnormal. ABSOLUTE LYMPHOCYTES (test code = 06237-5) 3.26 K/UL See_Comment [Automated messa ge] The system which generated this result transmitted reference range: 1.00-4.00 K/UL. The reference range was not used to interpret this result as normal/abnormal. ABSOLUTE MONOCYTES (test code = 91319-6) 0.52 K/UL See_Comment [Automated messa ge] The system which generated this result transmitted reference range: 0.20-1.00 K/UL. The reference range was not used to interpret this result as normal/abnormal. ABSOLUTE NEUTROPHILS (test code = 96259-8) 2.61 K/UL See_Comment [Automated messa ge] The system which generated this result transmitted reference range: 1.50-7.50 K/UL. The reference range was not used to interpret this result as normal/abnormal. BASOPHILS (test code = 70172-5) 1.6 % EOSINOPHILS (test code = 10578-6) 2.4 % HEMATOCRIT (test code = 67973-8) 38.8 % See_Comment [Automated messa ge] The system which generated this result transmitted reference range: 34.0-45.0 %. The reference range was not used to interpret this result as normal/abnormal. HEMOGLOBIN (test code = 718-7) 13.1 G/DL See_Comment [Automated messa ge] The system which generated this result transmitted reference range: 11.5-15.5 G/DL. The reference range was not used to interpret this result as normal/abnormal. LYMPHOCYTES (test code = 68776-3) 48.6 % MCH (test code = 08233-0) 30.1 PG See_Comment [Automated messa ge] The system which generated this result transmitted reference range: 25.0-33.0 PG. The reference range was not used to interpret this result as normal/abnormal. MCHC (test code = 73204-3) 33.8 G/DL See_Comment [Automated messa ge] The system which generated this result transmitted reference range: 31.0-36.0 G/DL. The reference range was not used to interpret this result as normal/abnormal. MCV (test code = 05033-6) 89.2 fL See_Comment [Automated messa ge] The system which generated this result transmitted reference range: 80.0-99.0 fL. The reference range was not used to interpret this result as normal/abnormal. MONOCYTES (test code = 92870-8) 7.7 % NEUTROPHILS (test code = 50727-5) 39.0 % PLATELET COUNT (test code = 26048-7) 269 K/UL See_Comment [Automated messa ge] The system which generated this result transmitted reference range: 130-400 K/UL. The reference range was not used to interpret this result as normal/abnormal. RBC (test code = 50618-7) 4.35 M/UL See_Comment [Automated messa ge] The system which generated this result transmitted reference range: 3.80-5.40 M/UL. The reference range was not used to interpret this result as normal/abnormal. RDW (test code = 31886-4) 12.8 % See_Comment [Automated messa ge] The system which generated this result transmitted reference range: 11.5-15.0 %. The reference range was not used to interpret this result as normal/abnormal. WBC (test code = 68406-5) 6.7 K/UL See_Comment [Automated messa ge] The system which generated this result transmitted reference range: 3.5-11.0 K/UL. The reference range was not used to interpret this result as normal/abnormal. SARS-COV 2 AntigenSARS-COV 2 Antigen
--- NOTE | 2024-07-10 13:20 | RAD REPORT ---
EXAM: CT brain without contrast HISTORY: Weakness and lethargy. COMPARISON: 2007 TECHNIQUE: Multiple contiguous axial images were obtained and a CT of the brain without contrast.. Sagittal and coronal reconstruction performed. Automated exposure control, adjustment of the mA and/or kV according to patient size, and/or iterative reconstruction. Unless otherwise specified, incidental f indings do not require dedicated imaging follow-up FINDINGS: An intracranial bleed is not seen Ventricles are normal caliber No extra-axial fluid collection noted No significant hypodensity within the brain. Mild cerebellar tonsillar ectopia. Empty sella turcica i s present. No fluid within the visualized sinuses or mastoids noted. IMPRESSION: No acute intracranial abnormality noted. If the patient continues to have symptoms to suggest an acute intracranial abnormality then MRI of th e brain would be recommended.
--- NOTE | 2024-07-10 13:40 | RAD REPORT ---
Procedure: Chest Single View HISTORY: Cough COMPARISON: 2013 FINDINGS: The lungs appear clear of acute infiltrate. No significant pleural effusion noted. The heart is normal size. IMPRESSION: No acute abnormality is displayed.
[2024-07-10] MEDS ORDERED: LORazepam 2 MG/ML VIAL ONE (14:34)
[2024-07-10 14:46] LABS: Absolute Basophils 0.1 K/uL (0-0.5); Absolute Eosinophils 0.1 K/uL (0-0.5); Absolute Lymphocytes (CBC) 4.5 K/uL (0.7-4.9); Absolute Monocytes 0.9 K/uL (0.1-1.3); Absolute Neutrophil 7.5 K/uL (1.8-8.0); Hematocrit 40.9 % (36.0-45.0); Hemoglobin 13.8 g/dL (12.0-15.0); Lymphocytes % 34.2 % (15.3-44.8); MCH 29.5 pg (27.0-35.0); MCHC 33.7 g/dL (32.0-36.0); MCV 87.6 fL (80-100); MPV 8.6 fL (7.6-11.3); Monocytes % 7.2 % (3.3-12.3); Neutrophils % 56.6 % (41.7-73.7); Platelets 310 thou/uL (152-406); RBC Red Blood Cell Count 4.67 M/uL (3.86-4.86); Red Cell Distribution Width 14.4 % (12.1-15.2)
[2024-07-10 15:04] LABS: Albumin 3.5 g/dL (3.4-5.0); Albumin/Globulin Ratio 0.9 (1.1-1.8); Anion Gap 9.5 mEq/L (5.0-15.0); Bilirubin Direct 0.2 mg/dL (0-0.2); Bilirubin Indirect, Calculated 0.4 mg/dL (0.2-0.8); Bilirubin Total 0.6 mg/dL (0.2-1.0); Globulin 3.9 g/dL (2.3-3.5); Magnesium 2.2 mg/dL (1.6-2.4); Potassium 3.5 mEq/L (3.5-5.1); Protein, Total 7.4 g/dL (6.4-8.2); Troponin High Sensitivity 3.5 pg/mL (<58.9)
--- NOTE | 2024-07-10 16:26 | EDPHYS ---
Physician Documentation [facility] Name: Tali Viera Age: 54 yrs Sex: Female : 1970 Arrival Date: 07/10/2024 Time: 12:49 Bed 7 Private MD: ED Physician Amy Thomas HPI: 07/10 17:20 This 54 yrs old Female presents to ER via Wheelchair with complaints of Chest kb Pain, Numbness Of Hand - fingers, Palpitations. 17:20 Patient is a 54-year-old female who presents for fatigue, weakness, chest tightness, kb tingling to bilateral hands and face that started yesterday. States symptoms got worse today which prompted her ER visit. Patient reports recent RA flare so she has been on prednisone, has been having hot flashes and ran out of her venlafaxine 2 days ago. States she has been under a lot of stress due to recent in the family, caring for her grandchildren, her adopted child and parents with dementia. Patient states her venlafaxine is ready for pickup at the pharmacy.. Historical: - Allergies: 13:00 Codeine; ko1 13:00 Morphine; ko1 - PMHx: 13:00 Depression; Hypertension; RA (Hypertension); ko1 - Immunization history:: Adult Immunizations unknown. - Infectious Disease History:: Denies. - Social history:: Smoking status: Patient denies any tobacco usage or history of. ROS: 14:59 Constitutional: As per HPI kb Exam: 14:44 ECG was reviewed by the Attending Physician. kb 14:59 Head/Face: Normocephalic, atraumatic. ENT: Moist Mucous membranes Cardiovascular: kb Regular rate Respiratory: Respirations even and unlabored. No increased work of breathing. Talking in full sentences Abdomen/GI: Soft, non-tender. No distention Skin: Warm, dry with normal turgor. Normal color. MS/ Extremity: Pulses equal, no cyanosis. Neurovascular intact. Full, normal range of motion. 14:59 Constitutional: The patient appears alert, awake, anxious, 14:59 Neuro: Orientation: is normal, to person, place, time \T\ situation. Mentation: able to follow commands, Motor: moves all fours, Strength is 3/5 in the right arm, left arm, right leg and left leg, Vital Signs: 12:56 BP 170 / 95; Pulse 75; Resp 24; Temp 97; Pulse Ox 100% ; ko1 14:41 BP 159 / 77; Pulse 70; Resp 18; Pulse Ox 100% on R/A; ph 16:14 BP 134 / 61; Pulse 77; Resp 18; Pulse Ox 100% on R/A; ph MDM: 12:52 Medical Screening Exam initiated kb 16:41 Data reviewed: vital signs, nurses notes. kb 17:19 Differential diagnosis: cva, stress reaction, arrhythmia, acute mi, abnormal kb electrolytes, fatigue. Consideration of Admission/Observation Escalation of care including admission/observation considered. admission considered but pt feeling improved after ativan. Management of patient was discussed with the following: Dr Thomas, who evaluated pt as well. . Historians other than the Patient: Spouse/Significant Other: . Counseling: I had a detailed discussion with the patient and/or guardian regarding the historical points, exam findings, and any diagnostic results supporting the discharge/admit diagnosis, lab results, radiology results, the need for outpatient follow up, a family practitioner, to return to the emergency department if symptoms worsen or persist or if there are any questions or concerns that arise at home. 07/10 13:02 Order name: Basic Metabolic Panel; Complete Time: 15:09 kb 07/10 13:02 Order name: CBC with Diff; Complete Time: 14:55 kb 07/10 13:02 Order name: Hepatic Function; Complete Time: 15:09 kb 07/10 13:02 Order name: Magnesium; Complete Time: 15:09 kb 07/10 13:02 Order name: Troponin High Sensitivity; Complete Time: 15:09 kb 07/10 14:48 Order name: Flu; Complete Time: 16:25 kb 07/10 13:02 Order name: CT Head Brain wo Cont; Complete Time: 13:21 kb 07/10 13:02 Order name: Chest Single View XRAY; Complete Time: 13:41 kb 07/10 13:02 Order name: Cardiac monitoring; Complete Time: 14:28 kb 07/10 13:02 Order name: EKG - Nurse/Tech; Complete Time: 14:28 kb 07/10 13:02 Order name: IV Saline Lock; Complete Time: 14:40 kb 07/10 13:02 Order name: Labs collected and sent; Complete Time: 14:40 kb 07/10 13:02 Order name: NPO; Complete Time: 14:40 kb 07/10 13:02 Order name: O2 Per Protocol; Complete Time: 14:40 kb 07/10 13:02 Order name: O2 Sat Monitoring; Complete Time: 14:40 kb EC:44 Rate is 60 beats/min. Rhythm is regular. QRS [place] is Normal. SC interval is normal at kb 128 msec. QRS interval is normal at 76 msec. QT interval is normal at 418 msec. Administered Medications: 14:40 Drug: Ativan IVP 0.5 mg IVP once Route: IVP; Site: right antecubital; ph 16:36 Follow up: Response: No adverse reaction; Anxiety decreased ph Disposition: 19:50 Co-signature as Attending Physician, Amy Thomas MD I agree with the assessment and gb1 plan of care. I reviewed the patient's care provided by Advanced Practice Provider \T\ agree w/ the diagnosis \T\ care plan. I personally saw the pt \T\ performed a substantive portion of the visit, incldng all aspects of the (History/Exam/Medical Decision Making). Disposition Summary: 07/10/24 16:26 Discharge Ordered Notes: Location: Home kb Condition: Stable kb Diagnosis - Weakness kb - Acute stress reaction kb Followup: kb - With: Emergency Department - When: As needed - Reason: Worsening of condition Followup: kb - With: Private Physician - When: 2 - 3 days - Reason: Recheck today's complaints, Continuance of care, Re-evaluation by your physician Discharge Instructions: - Discharge Summary Sheet kb - Stress, Adult kb - Weakness, [id number] kb Forms: - Medication Reconciliation Form kb - Antibiotic Education kb - Prescription Opioid Use kb - Patient Portal Instructions kb - Leadership Thank You Letter kb Signatures: Dispatcher [employer] EDHedy Patten, BIOTECH PRODUCTION SPECIALIST-C BIOTECH PRODUCTION SPECIALIST-Ckb Liana Daugherty, RN RN Aurelia Bartholomew RN RN ko1 Amy Thomas MD MD gb1 Corrections: (The following items were deleted from the chart) 13:02 13:02 BASIC METABOLIC PANEL+C.LAB.BRZ ordered. EDMS EDMS 13:02 13:02 CBC+H.LAB.BRZ ordered. EDMS EDMS 13:02 13:02 HEPATIC FUNCTION+C.LAB.BRZ ordered. EDMS EDMS 13: 13:02 MAGNESIUM+C.LAB.BRZ ordered. EDMS EDMS 13: 13:02 PROTIME (+INR)+COAG.LAB.BRZ ordered. EDMS EDMS 13: 13:02 PTT, ACTIVATED+COAG.LAB.BRZ ordered. EDMS EDMS 13: 13:02 Troponin High Sensitivity+C.LAB.BRZ ordered. EDMS EDMS 13: 13:02 Urinalysis+U.LAB.BRZ ordered. EDMS EDMS 13: 13:02 Head Brain Wo Cont+CT.RAD.BRZ ordered. EDMS EDMS 13:03 13:02 Chest Single View+RAD.RAD.BRZ ordered. EDMS EDMS
--- NOTE | 2024-07-10 16:26 | ER ---
Nurse's Notes [facility] Name: Tali Viera Age: 54 yrs Sex: Female : 1970 Arrival Date: 07/10/2024 Time: 12:49 Bed 7 Private MD: Diagnosis: Weakness;Acute stress reaction Presentation: 07/10 12:56 Chief complaint: Spouse and/or significant other states: hasnt been feeling well, some ko1 abdominal pain, I just dont feel right. Coronavirus screen: At this time, the client does not indicate any symptoms associated with coronavirus-19. Ebola Screen: No symptoms or risks identified at this time. Initial Sepsis Screen: Does the patient meet any 2 criteria? No. Patient's initial sepsis screen is negative. Does the patient have a suspected source of infection? No. Patient's initial sepsis screen is negative. Risk Assessment: Do you want to hurt yourself or someone else? Patient reports no desire to harm self or others. Onset of symptoms was July 10, 2024. 12:56 Method Of Arrival: Wheelchair ko1 12:56 Acuity: HI 3 ko1 Triage Assessment: 13:00 General: Appears in no apparent distress. Behavior is calm, cooperative, appropriate ko1 for age. Pain: Complains of pain in right upper quadrant. Cardiovascular: Reports chest pain. Historical: - Allergies: 13:00 Codeine; ko1 13:00 Morphine; ko1 - PMHx: 13:00 Depression; Hypertension; RA (Hypertension); ko1 - Immunization history:: Adult Immunizations unknown. - Infectious Disease History:: Denies. - Social history:: Smoking status: Patient denies any tobacco usage or history of. Screenin:41 [facility] ED Fall Risk Assessment (Adult) History of falling in the last 3 months, ph including since admission No falls in past 3 months (0 pts) Confusion or Disorientation No (0 pts) Intoxicated or Sedated No (0 pts) Impaired Gait No (0 pts) Mobility Assist Device Used No (0 pt) Altered Elimination No (0 pt) Score/Fall Risk Level 0 - 2 = Low Risk Oriented to surroundings, Maintained a safe environment, Hourly rounding (assess needs \T\ fall precautionary measures) done. Abuse screen: Denies threats or abuse. Denies injuries from another. Nutritional screening: No deficits noted. Tuberculosis screening: No symptoms or risk factors identified. Assessment: 14:42 General: Appears in no apparent distress. comfortable, well groomed, Behavior is ph anxious, crying. Pain: Complains of pain in chest. Pain: Pain does not radiate. Neuro: Level of Consciousness is awake, alert, obeys commands, Oriented to person, place, time, situation. Neuro: Reports numbness in right hand, right foot and left foot. Cardiovascular: Reports chest pain, palpitations. Respiratory: Airway is patent Respiratory effort is even, unlabored, Respiratory pattern is regular, symmetrical. GI: Reports diarrhea. Derm: Skin is pink, warm \T\ dry. Musculoskeletal: Circulation, motion, and sensation intact. Range of motion: intact in all extremities. 16:46 Reassessment: Patient appears in no apparent distress at this time. Patient and/or ph family updated on plan of care and expected duration. Pain level reassessed. Patient is alert, oriented x 3, equal unlabored respirations, skin warm/dry/pink. Patient states feeling better. Patient states symptoms have improved. Vital Signs: 12:56 BP 170 / 95; Pulse 75; Resp 24; Temp 97; Pulse Ox 100% ; ko1 14:41 BP 159 / 77; Pulse 70; Resp 18; Pulse Ox 100% on R/A; ph 16:14 BP 134 / 61; Pulse 77; Resp 18; Pulse Ox 100% on R/A; ph Vitals: 14:41 Cardiac Rhythm Assessment Sinus rhythm. ph ED Course: 12:52 Patient arrived in ED. im 12:52 Hedy Vincent F[facility]-C [facility] kb 12:52 Amy Thomas MD is Attending Physician. kb 13:00 Triage completed. ko1 13:00 Arm band placed on right wrist. Patient placed in an exam room, Patient notified of ko1 wait time. 13:13 CT Head Brain wo Cont In Process Unspecified. EDMS 13:37 Chest Single View XRAY In Process Unspecified. EDMS 14:25 Liana Daugherty, CONCHA is Primary Nurse. ph 14:40 Inserted saline lock: 20 gauge in right antecubital area, using aseptic technique. rs6 Blood collected. Flushed with 10 mL NS. 14:41 Patient has correct armband on for positive identification. Placed in gown. Bed in low ph position. Call light in reach. Side rails up X2. Client placed on continuous cardiac and pulse oximetry monitoring. NIBP monitoring applied. bus monitor on. Door closed. Noise minimized. Warm blanket given. Verbal reassurance given. 14:42 Initial lab(s) drawn, by ED staff, sent to lab. Patient maintains SpO2 saturation ph greater than 95% on room air. 14:43 Basic Metabolic Panel Sent. ph 14:43 CBC with Diff Sent. ph 14:43 Hepatic Function Sent. ph 14:43 Magnesium Sent. ph 14:44 Protime (+inr) Sent. ph 14:44 Ptt, Activated Sent. ph 14:44 Troponin High Sensitivity Sent. ph 16:36 No provider procedures requiring assistance completed. IV discontinued, intact, ph bleeding controlled, No redness/swelling at site. Pressure dressing applied. Administered Medications: 14:40 Drug: Ativan IVP 0.5 mg IVP once Route: IVP; Site: right antecubital; ph 16:36 Follow up: Response: No adverse reaction; Anxiety decreased ph Medication: 14:42 VIS not applicable for this client. ph Outcome: 16:26 Discharge ordered by . [email or web address] 16:46 Discharged to home via wheelchair, with significant other, ph 16:46 Condition: good 16:46 Discharge instructions given to patient, Instructed on discharge instructions, follow up and referral plans. Demonstrated understanding of instructions, follow-up care, 16:46 Patient left the ED. ph Signatures: Dispatcher [employer] EDNE Hedy Vincent, [employer]IN[employer] SHEETER OPERATOR-Liana Werner RN Aurelia Magana ph, RN RN ko1 Ada Du Ryan rs6
[2024-07-10 17:04] VITALS: TEMP 97; O2SAT 100
[2024-07-10 17:06] VITALS: BP 134/61
== END 2024-07-10 16:46 | disposition home or self-care (01) ==
LOC: ER 12:49
DX: R53.1 Weakness (principal); F43.0 Acute stress reaction; R07.9 Chest pain, unspecified; I10 Essential (primary) hypertension
CPT/HCPCS: 36415; 70450; 71045; 80048; 80076; 83735; 84484; 85025; 87804; 93005; 96374; 99285